=== PATIENT | male | born 1950 | race Caucasian/White ===

== ENCOUNTER 2023-02-01 20:08 | Emergency (ER) | payer OTHER ==
[2023-02-01 20:16] VITALS: BP 137/83; PULSE 65; RESP 18; TEMP 97.7; BMI 33.9
[2023-02-01] MEDS ORDERED: DIPHTH,PERTUSS(ACELL),TET 0.5 ML DISP.SYRIN IM ONE ×2 (21:08→21:10)
[2023-02-01] MEDS ORDERED: DOXYCYCLINE HYCLATE 100 MG CAPSULE PO ONE ×2 (21:08→21:09)
== END 2023-02-01 21:14 | disposition home or self-care (01) ==
LOC: JERFT 20:08
PROC: 3E0234Z Introduction of Serum, Toxoid and Vaccine into Muscle, Percutaneous Approach (ICD-10-PCS; principal; 2023-02-01)
DX: Z04.3 Encounter for examination and observation following other accident (principal)
CPT/HCPCS: 90471; 90715; 99283-25

== ENCOUNTER 2024-10-09 14:42 | Emergency (ER) | payer OTHER ==
[2024-10-09 15:00] VITALS: BP 129/79; PULSE 79; RESP 16; TEMP 98.1; BMI 34.5
[2024-10-09] MEDS ORDERED: KETOROLAC TROMETHAMINE 30 MG/1 ML VIAL ONE (15:21)
[2024-10-09] MEDS ORDERED: LIDOCAINE 5% TOPICAL PATCH ONE (15:21)
[2024-10-09] MEDS: KETOROLAC TROMETHAMINE 30 MG/1 ML VIAL IM ONE (15:28)
[2024-10-09] MEDS: LIDOCAINE 5% TOPICAL PATCH TP ONE (15:32)
[2024-10-09] MEDS ORDERED: LIDOCAINE PATCH REMOVAL MC SCH (22:00)
== END 2024-10-09 16:49 | disposition home or self-care (01) ==
LOC: FER 14:42
PROC: 3E0233Z Introduction of Anti-inflammatory into Muscle, Percutaneous Approach (ICD-10-PCS; principal; 2024-10-09)
DX: M54.6 Pain in thoracic spine (principal); X50.0XXA Overexertion from strenuous movement or load, initial encounter
CPT/HCPCS: 71046-TC-FY; 93005; 99284-25